=== PATIENT | female | born 1990 | race Caucasian/White ===

== ENCOUNTER → 2020-07-10 12:11 | Outpatient (CLI) | payer OTHER, MEDICAID, SELFPAY ==
[2020-07-10 13:01] LABS: Add Manual Diff / Slide Review NO; Basophils Absolute Auto 0 /uL (0-100); Basophils Percent Auto 0.6 % (0-2); Eosinophils Absolute Auto 200 /uL (0-450); Eosinophils Percent Auto 2.9 % (2-4); Hematocrit 42.3 % (36-46); Hemoglobin 14.7 g/dL (12.0-16.0); Lymphocytes Absolute Auto 1000 /uL (1100-4500); Lymphocytes Percent Auto 14.7 % (25-40); Mean Corpuscular HGB Conc 34.7 % (30-36); Mean Corpuscular Hemoglobin 35.5 PG (26-34); Mean Corpuscular Volume 102.1 fL (80-100); Monocytes Absolute Auto 500 /uL (0-900); Monocytes Percent Auto 7.8 % (3-14); Neutrophils Absolute Auto 5200 /uL (1500-7000); Platelet Count 292 X10^3/uL (150-400); Red Blood Cell Count 4.14 X10^6/uL (4.0-5.2); Red Cell Distribution Width 12.5 % (11.6-14.8)
[2020-07-10 13:21] LABS: Alanine Aminotransferase 24 IU/L (<35); Albumin 4.4 g/dL (3.5-5.0); Albumin Globulin Ratio 1.2 (1.0-2.8); Alkaline Phosphatase 67 U/L (38-126); Aspartate Aminotransferase 27 IU/L (14-36); BUN Creatinine Ratio 20.6 (6-22); Bilirubin Total 0.6 mg/dL (0.2-1.3); Blood Urea Nitrogen 14 mg/dL (7-17); Calcium 9.6 mg/dL (8.4-10.2); Carbon Dioxide 28 mmol/L (22-32); Chloride 100 mmol/L (98-107); Estimated Glomerular Filt Rate > 60.0 mL/min (>60); Globulin 3.6 g/dL (1.7-4.1); Glucose 102 mg/dL (70-100); HEMOLYSIS < 15 (0-50); Potassium 3.9 mmol/L (3.4-5.1); Sodium 136 mmol/L (137-145)
[2020-07-10 14:28] LABS: TSH w/ Reflex to FT4 3.04 uIU/mL (0.47-4.68)
== END ==
PROVIDERS: PCP Registered Nurse; Referring Provider Registered Nurse; Visit Provider Registered Nurse
DX: L65.9 Nonscarring hair loss, unspecified (principal); Z83.49 Family history of other endocrine, nutritional and metabolic diseases
CPT/HCPCS: 36415; 80053; 84443; 85025

== ENCOUNTER → 2020-12-13 13:12 | Outpatient (CLI) | payer OTHER, MEDICAID, SELFPAY | PROVIDERS: PCP Registered Nurse; Visit Provider Physician Assistant | DX: L02.91 Cutaneous abscess, unspecified (principal) | CPT/HCPCS: 87070; 87075; 87077; 87147; 87205 ==

== ENCOUNTER 2021-11-09 16:59 | Emergency (ER) | payer OTHER, MEDICAID, SELFPAY ==
[2021-11-09 17:12] VITALS: BP 143/92; PULSE 75; RESP 16; TEMP 36.4; O2SAT 99; BMI 31.7
--- NOTE | 2021-11-09 17:16 | DI.RAD.S_ITS ---
PROCEDURE: XR HAND LT MIN 3V INDICATIONS: laceration left hand glass vase TECHNIQUE: Four views of the hand(s) acquired. COMPARISON: None. FINDINGS: Bones: The middle finger is obscured by the ring. No displaced fracture. No dislocation. Soft tissues: No radiopaque foreign body. IMPRESSION: No acute radiographic abnormality. No radiopaque foreign body. Consider cross-sectional imaging if there is high concern for occult injury. Dictated by: Lawrence Rodriguez M.D. on 11/09/2021 at 17:44 Approved by: Lawrence Rodriguez M.D. on 11/09/2021 at 17:45
[2021-11-09] MEDS: TET,DIPH,PERTUSS(ACELL),VAC/PF 0.5 ML SYRINGE IM (18:07)
[2021-11-09] MEDS: IBUPROFEN 400 MG TABLET 800 MG PO (18:07)
--- NOTE | 2021-11-09 20:15 | ED_ITS ---
HPI - Wound/Laceration <Alfredito Hernandez PA-C - Last Filed: 11/09/21 20:23> General Chief Complaint: Wound/Laceration Stated Complaint: Left pinky lac Time Seen by Provider: 11/09/21 18:01 History of Present Illness HPI narrative: Patient is a 31-year-old female reports to the emergency room today with complaint of laceration to her left pinky finger. Cut her pinky finger while working at home today when a vase broke and cut her finger. Denies any other concerns at this time. Related Data Allergies Allergy/AdvReac Type Severity Reaction Status Date / Time No Known Drug Allergies Allergy Verified 11/09/21 17:14 Review of Systems <Alfredito Hernandez PA-C - Last Filed: 11/09/21 20:23> Review of Systems Narrative: R.O.S.: General: No fever, chills or fatigue. Cardiovascular: No chest pain or palpitations Respiratory: No S.O.B. HEENT: No congestion, ear pain, rhinorrhea, sore throat or tinnitus Gastrointestinal: No nausea or vomiting Skin: Laceration to left pinky finger Neurological: Awake, alert and in not apparent distress. No Headaches, changes in vision or other related neurological concerns. Patient History <Alfredito Hernandez PA-C - Last Filed: 11/09/21 20:23> Medical History Encounter for counseling regarding contraception Encounter for IUD removal Fractures (~2018) GERD (gastroesophageal reflux disease) Hair loss Low back pain Wears contact lenses Surgical History Anesthesia H/O: (~11/13/11) Family History Mother Thyroid condition Depression Father Alcoholic Social History Smoking Status: Former smoker Smoking Status: Former smoker Substance Use Type: does not use Exam <Alfredito Hernandez PA-C - Last Filed: 11/09/21 20:23> Narrative Exam Narrative: Physical Exam: ? General: normal appearance, well developed, well nourished, alert, and awake. Not in acute distress. ? Head: Normocephalic, no lesions. Chest: Lungs CTAB, no rales, rhonchi or wheezes. ?? Heart: RRR, no murmurs, rubs or gallops. Eyes: PERRLA, EOM's full, conjunctivae clear. ? Neuro: Physiological, no localizing findings, CN3-12 intact. ?? Extremities: Warm, well perfused, FROM, no deformities, no edema. ?? Skin: Patient has a 2 cm laceration to the left volar pinky at the proximal phalanx. Laceration is clean with no jagged edges and has minor bleeding minor erythema and mild swelling. PSYCHIATRIC: The mood is good, no blunted affect. Speech is clear. Thought process is linear, thought content is appropriate. The voice is without significant inflection. Initial Vital Signs Initial Vital Signs: Vital Signs Temperature 97.6 F 11/09/21 17:12 Pulse Rate 75 11/09/21 17:12 Respiratory Rate 16 11/09/21 17:12 Blood Pressure 143/92 H 11/09/21 17:12 Pulse Oximetry 99 11/09/21 17:12 Oxygen Delivery Method 11/09/21 17:12 <Jd Du DO - Last Filed: 11/10/21 01:04> Initial Vital Signs Initial Vital Signs: Vital Signs Temperature 97.6 F 11/09/21 17:12 Pulse Rate 75 11/09/21 17:12 Respiratory Rate 16 11/09/21 17:12 Blood Pressure 143/92 H 11/09/21 17:12 Pulse Oximetry 99 11/09/21 17:12 Oxygen Delivery Method 11/09/21 17:12 Procedures <Alfredito Hernandez PA-C - Last Filed: 11/09/21 20:23> Laceration Repair Laceration 1: Site: hand Side (If applicable): left Size (cm): 2 Description: linear Depth: simple, single layer Local Anesthetic: lidocaine 2% Skin layer closed with: nylon Skin layer suture size: 4-0 Number of sutures: 4 Technique: simple, interrupted Course <JAZZY Abraham Last Filed: 11/09/21 20:23> Orders Ordered: ED Orders 11/09/21 17:16 XR hand LT min 3V Stat Discontinued Medications Bacitracin (Bacitracin Oint 0.9 Gm Pckt) 2 applic TOP NOW ONE Stop: 11/09/21 19:48 Last Admin: 11/09/21 20:35 Dose: 2 applic Documented By: RALPH Diphtheria/Tetanus/Acell Pertussis (Tet,Diph,Pertuss(Acell),Vac/Pf 0.5 Ml Syringe) 0.5 ml IM .ONCE ONE Stop: 11/09/21 17:16 Last Admin: 11/09/21 18:07 Dose: 0.5 ml Documented By: ROYAL Ibuprofen (Ibuprofen 400 Mg Tablet) 800 mg PO NOW ONE Stop: 11/09/21 17:58 Last Admin: 11/09/21 18:07 Dose: 800 mg Documented By: ROYAL Lidocaine HCl (Lidocaine 2% Inj Sdv) 5 ml INJ INTRA-OP ONE Stop: 11/09/21 19:47 Last Admin: 11/09/21 20:35 Dose: 5 ml Documented By: RALPH Vital Signs Vital signs: Vital Signs - 8 hr 11/09/21 17:12 11/09/21 20:36 Temperature 97.6 F Pulse Rate 75 98 H Respiratory Rate 16 18 Blood Pressure 143/92 H Pulse Oximetry 99 99 Oxygen Delivery Method Room Air Room Air <Jd Du DO - Last Filed: 11/10/21 01:04> Orders Ordered: ED Orders 11/09/21 17:16 XR hand LT min 3V Stat Discontinued Medications Bacitracin (Bacitracin Oint 0.9 Gm Pckt) 2 applic TOP NOW ONE Stop: 11/09/21 19:48 Last Admin: 11/09/21 20:35 Dose: 2 applic Documented By: RALPH Diphtheria/Tetanus/Acell Pertussis (Tet,Diph,Pertuss(Acell),Vac/Pf 0.5 Ml Syringe) 0.5 ml IM .ONCE ONE Stop: 11/09/21 17:16 Last Admin: 11/09/21 18:07 Dose: 0.5 ml Documented By: ROYAL Ibuprofen (Ibuprofen 400 Mg Tablet) 800 mg PO NOW ONE Stop: 11/09/21 17:58 Last Admin: 11/09/21 18:07 Dose: 800 mg Documented By: ROYAL Lidocaine HCl (Lidocaine 2% Inj Sdv) 5 ml INJ INTRA-OP ONE Stop: 11/09/21 19:47 Last Admin: 11/09/21 20:35 Dose: 5 ml Documented By: RALPH Vital Signs Vital signs: Vital Signs - 8 hr 11/09/21 17:12 11/09/21 20:36 Temperature 97.6 F Pulse Rate 75 98 H Respiratory Rate 16 18 Blood Pressure 143/92 H Pulse Oximetry 99 99 Oxygen Delivery Method Room Air Room Air MDM - Wound/Laceration <Alfredito Hernandez PA-C - Last Filed: 11/09/21 20:23> Imaging Data Extremity x-ray #1: Radiologist's Impression: PROCEDURE:? XR HAND LT MIN 3V ? INDICATIONS:? laceration left hand glass vase ? TECHNIQUE:? Four views of the hand(s) acquired.? ? COMPARISON:? None. ? FINDINGS:? ? Bones:? The middle finger is obscured by the ring. No displaced fracture.? No dislocation. ? Soft tissues:? No radiopaque foreign body. ? ? IMPRESSION:? No acute radiographic abnormality.? No radiopaque foreign body.? Consider cross-sectional imaging if there is high concern for occult injury. ? ? Dictated by: Lawrence Rodriguez M.D. on 11/09/2021 at 17:44 ? ? Approved by: Lawrence Rodriguez M.D. on 11/09/2021 at 17:45 ? [facility] Narrative Medical decision making narrative: Patient is 31-year-old female who presents to the emergency room today with complaint of laceration to her left finger. Cut the finger on a broken vase today. Denies any other concerns. X-ray of the left hand did not reveal any foreign body in the lacerated area. This provider inserted for sutures to close the 2 cm laceration without complications. And was placed on the area and patient was supplied with additional dressing supplies and instructions for care. Patient advised to return to the emergency room should any emergent concerns arise. Patient agrees plan Discharge Plan Departure Patient Disposition: Home Clinical Impression: Laceration Instructions: DI for Laceration Repair Activity Restrictions/Additional Instructions: *You have been diagnosed with [laceration of the left pinky finger. Four sutures were used to close the laceration and dressing with antibiotic ointment was applied in the emergency room. He was also supplied with additional antibiotic and dressings. Please clean the area and last Veto has instructed to-please refrain from bring any foreign body or extreme motion the area. Also please return to emergency room today emergent concerns arise.] *What to do: *Please continue to take your regular medications as directed. [ ] New medication prescriptions sent to your pharmacy: [ ] [ ] New medication written as a paper prescription [x] No new medications given *Please follow up with your primary care provider in 2-3 days, call for an appointment. Let them know you were seen in the Emergency Department and that we ask that you be seen in follow up. We will electronically transmit a record of today's note if your PCP is in our system *If you do not have a primary care provider please contact the [facility] Resource line at [phone]. They will ask some questions about your medical history and help get you set up with a doctor in the community. *Return to Emergency Department if you should have any new, worsening or concerning symptoms, such as [fever greater than 101 F, shaking chills, worsening pain, persistent vomiting or other bothersome symptoms] Referrals: Huseyin Santos ARNP [Primary Care Provider] - Visit Report Forms: Patient Portal/API <Jd Du DO - Last Filed: 11/10/21 01:04> [facility] ED Attending Mary Ellenature Attestation: I was immediately available in the department for consultation. This documentation has been reviewed and I agree with assessment and plan. Supervised by Jd Du DO
[2021-11-09] MEDS: LIDOCAINE 2% INJ SDV 5 ML INJ (20:35)
[2021-11-09] MEDS: BACITRACIN OINT 0.9 GM PCKT 2 APPLIC TOP (20:35)
[2021-11-09 20:36] VITALS: PULSE 98; RESP 18; O2SAT 99
== END 2021-11-09 20:37 | disposition home or self-care (01) ==
PROVIDERS: Emergency Provider Physician Assistant; PCP Registered Nurse
DX: S61.217A Laceration without foreign body of left little finger without damage to nail, initial encounter (principal); W25.XXXA Contact with sharp glass, initial encounter; Z23 Encounter for immunization
CPT/HCPCS: 12001; 73130; 90471; 99283; 99284; 90715